=== PATIENT | male | born 1980 | race Hispanic/Latino ===

== ENCOUNTER 2025-01-02 15:57 | Emergency (ER) | payer BC, SELFPAY ==
[2025-01-02] VITALS (7 sets, daily range): BP systolic 148–181; BP diastolic 84–99; BMI 27.3
[2025-01-02] MEDS: NSS 1000 IV (16:47)
[2025-01-02] MEDS: ZOFRAN 4 MG IV (16:48)
[2025-01-02] MEDS: DILAUDID 0.5 MG IV (16:48)
[2025-01-02 17:01] LABS: Hematocrit 47.7 % (39.0-52.0); Hemoglobin 16.0 g/dL (13.0-18.0); Mean Corp Hgb Conc. 33.5 g/dL (33.0-37.0); Mean Corpuscular Volume 82.0 fL (80.0-94.0); Nucleated Red Blood Cells % 0 % (-); Platelet Count 232 10^3/uL (130-400); Red Cell Dist. Width 12.6 % (11.5-14.5)
[2025-01-02 17:25] LABS: ALT (SGPT) 21 U/L (0-50); AST (SGOT) 22 U/L (17-59); Albumin 5.1 g/dl (3.5-5.0); Alkaline Phosphatase 61 U/L (38-126); Blood Urea Nitrogen 16 mg/dl (9-20); Calcium 9.6 mg/dl (8.4-10.2); Carbon Dioxide 26 mmol/L (22-30); Chloride 102 mmol/L (98-107); Estimated Creatinine Clearance 107 ml/min; Glucose 131 mg/dl (70-99); Potassium 4.4 mmol/L (3.5-5.1); Sodium 138 mmol/L (135-145); Total Protein 8.2 g/dl (6.3-8.2); eGFR > 60.00
[2025-01-02 17:27] LABS: C-Reactive Protein < 5.00 mg/L (0.0-10.00)
[2025-01-02] MEDS: OFIRMEV 100 IV (17:38)
[2025-01-02 18:13] LABS: COVID-19 Antigen Negative (Negative)
[2025-01-02] MEDS: TORADOL 30 MG IV (19:53)
[2025-01-02] MEDS: DECADRON 10 MG IV (19:54)
[2025-01-02 20:29] LABS: Urine Character Cloudy (Clear)
[2025-01-02 20:35] LABS: Urine Red Blood Cell 0-2 /HPF (0-2); Urine Squamous Cell 0-2 /LPF (Few); Urine White Cell 0-2 /HPF (0-5)
--- NOTE | 2025-01-02 22:01 | ED.GENMED ---
History of Present Illness
General
Chief Complaint: Fever
Source: patient and spouse
Exam Limitations: none
Time Seen by Provider: 01/02/25 16:14
Nursing documentation reviewed up to this point in time: agreed with
History of Present Illness
History of Present Illness:
Patient to ED with complaitn of severe head and neck pain, fever, n/v. Symptoms started friday and continue to worsen. Temp max 102. Taking ibuprofen and tylenol with little improvement. Today he has been unable to keep anything down today.
Brought to ED by spouse for eval.
Past History
Past History
ED Past Medical History: HTN, Other (prediabetic, quadraparesis) and Other (COVID-19 08/2021)
Social History
Tobacco: Non-smoker
Employment: Employed
Family History
Family History: Other (reviewed and noncontributory)
Review of Systems
Review of Systems
Allergies reviewed?: Yes
All Other Systems: ROS reviewed and negative except as documented in HPI and ROS
Constitutional: Reports fever and fatigue
EENT: Reports no symptoms
Respiratory: Reports no symptoms
Cardiac: Reports no symptoms
ABD/GI: Reports nausea and vomiting
: Reports no symptoms
Musculoskeletal: Reports no symptoms
Skin: Reports no symptoms
Neurological: Reports headache
Psychiatric: Reports no symptoms
Phy Exam
General Physical Exam
General Presentation: moderate distress
General age: appears stated age
General Skin: warm and dry
General Habitus: normal
General Mental: alert
General Hydration: dry mucous membranes
ENT Exam
ENT Exam: EOMI, TM's normal, pharynx normal, neck supple, normocephalic and swallowing well
Eye Exam
Eye Exam: PERRL, EOMI, conjunctiva normal and globe normal
Cardiovascular Exam
Cardiovascular Exam: regular rate/rhythm and no edema
Pulmonary Exam
Pulmonary Exam: lungs clear and no respiratory distress
Gastrointestinal Exam
Gastrointestinal Exam: non tender and soft
Neurological Exam
Neurological Exam: alert, oriented x3, no motor deficits, no sensory deficits and speech normal
Musculoskeletal Exam
Musculoskeletal Exam: full ROM and neuro vasc intact
Skin Exam
Skin Exam: normal color, warm/dry and no rash
Psychiatric Exam
Psychiatric Exam: normal mood/affect
Course
Orders/Labs/Results
Orders:
Orders
01/02/25 16:27
HYDROmorphone [Dilaudid] 0.5 mg IV NOW STA
Ondansetron Injectable [Zofran] 4 mg IV NOW STA
01/02/25 16:28
0.9% Sodium Chloride 1000 ml [Nss] 1,000 ml IV BOLUS
01/02/25 16:35
CT Head W/o Iv Contrast Urgent
Comment:
Reason For Exam: severe head pain
01/02/25 16:43
CRP [C-Reactive Protein] Urgent
Complete Blood Count/With Diff Urgent
Comprehensive Metabolic Panel Urgent
Lactic Acid Urgent
Lyme Progressive Urgent
Sed Rate [Erythrocyte Sed Rate] Urgent
Blood Culture Q30M
PRAVIN Source: Blood/Venous
Specimen Description:
01/02/25 17:18
Blood Culture Q30M
PRAVIN Source: Blood/Venous
Specimen Description:
01/02/25 17:27
Acetaminophen 1000MG/100Ml [Ofirmev] 1,000 mg in 100 ml IV ONCE
Acetaminophen IV Indication:: No [place] & No Enteral Access
01/02/25 17:37
COVID-19 Antigen Urgent
Source: Nasal Swab
Influenza A+B Rapid Molecular Urgent
PRAVIN Source: Nasal Swab
Specimen Description:
01/02/25 19:33
Dexamethasone Sod Phosphate [Decadron] 10 mg IV NOW STA
Ketorolac [Toradol] 30 mg IV NOW STA
01/02/25 20:22
Urinalysis Reflex To Culture Urgent
Date Specimen was Collected: 01/02/25
Time Specimen was Collected: 20:21
Urine Microscopic Reflex Cult Urgent
Abnormal Lab Results
01/02/25 01/02/25
16:43 20:22
Absolute Neuts (auto) 6.9 H 10^3/uL
(1.4-6.5)
Absolute Lymphs (auto) 0.7 L 10^3/uL
(1.2-3.4)
Neutrophils % 88.4 H %
(42.2-75.2)
Lymphocytes % 8.3 L %
(20.5-51.1)
Glucose 131 H mg/dl
(70-99)
Albumin 5.1 H g/dl
(3.5-5.0)
Urine Ketones 3+ A
(Negative)
Urine Bacteria (Reflex) Few A
(Negative)
Urine Albumin (Reflex) 2+ A
(Neg - Trace)
01/02/25 16:43
01/02/25 16:43
Vital Signs
Initial and Last Documented VS:
Initial Vital Signs
Temp Pulse Resp BP Pulse Ox
98.6 F 84 17 157/99 96
01/02/25 15:59 01/02/25 15:59 01/02/25 15:59 01/02/25 15:59 01/02/25 15:59
Last Documented Vital Signs
Temp Pulse Resp BP Pulse Ox
97.8 F 76 17 150/86 98
01/02/25 20:36 01/02/25 20:30 01/02/25 20:30 01/02/25 20:00 01/02/25 20:30
*Radiology
Radiology exam reviewed: radiology read reviewed
*Pulse Oximetry
SaO2: 98
Oxygen Mode of Delivery: Room air
Patient hypoxic: no
*Critical Care Note
Total Time (30-74mins, 75-104mins- exclusive of procedures): Not Applicable
Update Note
Update Note:
Patient to ED with headache, fever, neck pain since Friday, not responding to tylenol or IBU. VSS, he is afebrile in ED. Labs reviewed. WBC normal, no concerning findings on cbc, chem, ua. CT head neg for acute findings. He was given IVF,
dilaudid, zofran, ofirmiv in ED without improvement in pain. Nausea and vomiting resolved wiht zofran. He was then given decadron and IV toradol with relief of pain. Discussed LP procedure wth him and spouse, they elect to hold off at this time as
he has improved greatly. Will continue zofran, toradol, prednisone at home, close follow upw tih PCP. Given instructions on s/s to return to ED and he is agreeable to plsn
ED Attending Note
-
Portions of this chart may have been created with voice recognition software.� Occasional wrong word or��sound alike� substitutions may have occurred due to the inherent limitations of voice recognition software.
Discharge Plan
Departure
Patient Disposition: Home (Routine Discharge)
Date of Disposition: 01/02/25
Time of Disposition: 20:29
Patient with high blood pressure during this ER visit?: No
Condition: Good
Covid-19: Not Applicable
Discharge Problem:
Viral illness, Headache, Neck pain
Instructions: Viral Syndrome (DC), Headaches in adults
Prescriptions:
New
ketorolac 10 mg tablet
10 mg PO Q8H PRN (Reason: head pain) 2 Days Qty: 7 0RF
prednisone 20 mg tablet
40 mg PO DAILY Qty: 8 0RF
ondansetron 4 mg tablet,disintegrating
4 mg PO Q8H PRN (Reason: nausea and vomiting) 4 Days Qty: 12 0RF
No Action
lisinopril 10 MG tablet
10 mg PO DAILY
Patient Comments:
08/31/21-patient has bottle from years ago at home and stop talking it then return taking it when he saw his new pcp and then found something on a test, patient girlfriend said patient in between finding a new pcp
metformin 500 MG tablet
500 mg PO BID@0800,1700 30 Days Qty: 60 0RF
dexamethasone 4 MG tablet
6 mg PO DAILY 10 Days Qty: 15 0RF
aspirin [Adult Low Dose Aspirin] 81 MG tablet,delayed release (DR/EC)
81 mg PO DAILY Qty: 30 0RF
Referrals:
Haley Foster CRNP [Family Provider] - Tomorrow
Stand Alone Forms: Return to Work
Interventions
Interventions:
*Risk Screen - Suicide Last Done: 01/02/25 16:01
*General Assessment Last Done: 01/02/25 16:01
*Neglect/Abuse Screening Last Done: 01/02/25 16:01
*ED- Fall Risk Assessment Last Done: 01/02/25 16:14
*ED COVID-19 Vaccine History Last Done: 01/02/25 16:01
*ED Influenza Vaccine History Last Done: 01/02/25 16:01
*Nursing Disposition Last Done: 01/02/25 20:46
ED- Neurological Assessment Last Done: 01/02/25 16:19
ED-Skin Assessment Last Done: 01/02/25 16:19
Discharge Date and Time
Discharge Date/Time: 01/02/25 20:50
Print Language: GREEK
[2025-01-03 16:09] LABS: Lyme Antibody Screen, EIA Negative (Negative)
== END 2025-01-02 20:50 | disposition home or self-care (01) ==
LOC: EMR 15:57
PROVIDERS: Nurse Practitioner; EMERGENCY PHYSICIAN Student in an Organized Health Care Education/Training Program; FAMILY PHYSICIAN Nurse Practitioner Primary Care
DX: B34.9 Viral infection, unspecified (principal); R51.9 Headache, unspecified; M54.2 Cervicalgia; R11.2 Nausea with vomiting, unspecified; I10 Essential (primary) hypertension; Z86.16 Personal history of COVID-19
CPT/HCPCS: 99284; 96374; 96375; 96361; 70450; 80053; 81003; 81015; 83605; 85025; 85652; 86140; 86618; 87040; 87502; 87811

== ENCOUNTER 2025-01-06 15:39 | Inpatient (IN) | payer BC, SELFPAY ==
[2025-01-06] VITALS (20 sets, daily range): BP systolic 124–158; BP diastolic 79–105; BMI 28.5
[2025-01-06] MEDS: NSS 1000 IV (11:22)
[2025-01-06] MEDS: DILAUDID 0.5 MG IV ×2 (11:23→12:06)
[2025-01-06 11:42] LABS: Hematocrit 46.3 % (39.0-52.0); Hemoglobin 15.7 g/dL (13.0-18.0); Mean Corp Hgb Conc. 33.9 g/dL (33.0-37.0); Mean Corpuscular Volume 81.1 fL (80.0-94.0); Platelet Count 225 10^3/uL (130-400); Red Cell Dist. Width 12.5 % (11.5-14.5)
--- NOTE | 2025-01-06 11:58 | ED.GENMED ---
History of Present Illness
General
Chief Complaint: Headache
Source: patient and significant other
Time Seen by Provider: 01/06/25 11:00
History of Present Illness
History of Present Illness:
44-year-old male presents to the emergency room complaining of persistent headache, neck stiffness, low-grade fever. Symptoms began about 10 days ago. He initially had a temperature up to 102. He was actually seen here in the emergency room on
January 02. At that time he had a negative flu and COVID test. He received IV medication for discomfort with improvement. In particular to my Toradol and Decadron worked. He had a CT of the head which showed nothing acute. Symptoms not really
improved since that time. He has not had as high fever. Patient does not take any prescription medications. He had a unusual episode in 2021 when he had headache, fever and became paralyzed. Ultimately was thought he had a cerebritis from rapid
COVID. Though symptoms ultimately resolved.
Past History
Past History
ED Past Medical History: HTN, Other (prediabetic, quadraparesis) and Other (COVID-19 08/2021)
Social History
Tobacco: Non-smoker
Employment: Employed
Family History
Family History: Other (reviewed and noncontributory)
Phy Exam
Physical Exam
Physical Exam:
General: Awake, Alert, Oriented X3. Patient appears uncomfortable from pain
Vitals: unremarkable
Head: Atraumatic
Eyes: Pupils equal, EOMI
Throat: Airway intact, no exudates
Neck: Trachea midline, positive nuchal rigidity
Lungs: Clear and equal b/l
Heart: Regular rate, no murmurs
Abd: Soft, Nontender, No pulsatile mass
Neuro: Cranial nerves intact, muscle strength equal bilaterally
Skin: Warm, dry, no rash
Extremities: pulses equal b/l, no edema
Course
Orders/Labs/Results
Orders:
Orders
01/06/25 11:13
Electrocardiogram (*1) Stat
Reason for Study: Other
Other Reason for Exam: Headache
Cardiac Monitoring- Treatment ONCE
EKG- Treatment ONCE
0.9% Sodium Chloride 1000 ml [Nss] 1,000 ml IV BOLUS
HYDROmorphone [Dilaudid] 0.5 mg IV NOW STA
01/06/25 11:27
Complete Blood Count/No Diff Urgent
Lyme Progressive Urgent
01/06/25 11:58
Comprehensive Metabolic Panel Urgent
Meningitis Panel, CSF by PCR Urgent
PRAVIN Source: Csf
Specimen Description:
Dexamethasone Sod Phosphate [Decadron] 6 mg IV NOW STA
HYDROmorphone [Dilaudid] 0.5 mg IV NOW STA
Ketorolac [Toradol] 15 mg IV NOW STA
01/06/25 11:59
CSF Cell Count Urgent
Date Specimen was Collected: 01/06/25
Time Specimen was Collected: 11:58
Spinal Fluid Glucose Urgent
Date Specimen was Collected: 01/06/25
Time Specimen was Collected: 11:58
Spinal Fluid Protein Urgent
Date Specimen was Collected: 01/06/25
Time Specimen was Collected: 11:58
CSF Culture with Gram Stain Urgent
PRAVIN Source: Csf
Specimen Description:
Date Specimen was Collected: 01/06/25
Time Specimen was Collected: 11:58
01/06/25 12:52
CefTRIAXone [Rocephin] 2,000 mg IV NOW STA
Vancomycin [Vancocin] 2,000 mg 0.9% Sodium Chloride 500 ml [Nss] 500 ml IV NOW
01/06/25 13:01
Acyclovir [Zovirax Injection] 1,000 mg 0.9% Sodium Chloride 250 ml [Nss] 250 ml IV NOW
01/06/25 13:36
Dexamethasone Sod Phosphate [Decadron] 8.8 mg IV NOW STA
01/06/25 13:40
CSF Cell Count Urgent
Date Specimen was Collected: 01/06/25
Time Specimen was Collected: 11:30
Gram Stain Urgent
PRAVIN Source: Csf
Specimen Description:
Date Specimen was Collected: 01/06/25
Time Specimen was Collected: 11:30
01/06/25 13:43
Consult Interventional Radiology [IRAD CONSULT] Urgent
Consulting Provider: Nilesh Samson
Was physician already notified: Yes
Procedure being ordered, including laterality if applicable: Lumbar Puncture
Acknowledgement that appropriate orders are entered: Yes
01/06/25 13:44
INFECTIOUS DISEASE CONSULT Routine
Consulting Provider: Hugo Villagomez
Was physician already notified: Yes
Reason for consult: Meningitis
01/06/25 13:55
Lyme PCR, DNA [S] Stat
Blood Culture Q30M
PRAVIN Source: Blood/Venous
Specimen Description:
Comment: STAT BLOOD CULTURES
01/06/25 13:58
Blood Culture Q30M
PRAVIN Source: Blood/Venous
Specimen Description:
Comment: STAT BLOOD CULTURES
Abnormal Lab Results
01/06/25 01/06/25
11:58 11:59
Glucose 106 H mg/dl
(70-99)
Calcium 8.3 L mg/dl
(8.4-10.2)
Total Bilirubin 1.6 H mg/dl
(0.2-1.3)
CSF WBC 356 H* mm^3
(0-5)
CSF Total Protein 171 H mg/dl
(12-60)
01/06/25 11:27
01/06/25 11:58
Vital Signs
Initial and Last Documented VS:
Initial Vital Signs
Temp Pulse Resp BP Pulse Ox
98.6 F 73 20 142/99 98
01/06/25 10:06 01/06/25 10:06 01/06/25 10:06 01/06/25 10:06 01/06/25 10:06
Last Documented Vital Signs
Temp Pulse Resp BP Pulse Ox
98.6 F 86 19 153/95 97
01/06/25 10:06 01/06/25 13:15 01/06/25 13:15 01/06/25 13:00 01/06/25 13:15
Procedures
Lumbar Puncture
Indication for procedure:: possible meningitis
Procedure completed by: myself
Consent form signed: No
Anesthesia/sedation: 1% Lidocaine
Preparation: cleaned with Betadine
Position: decubitis
Needle Size: 20 gauge
Needle Type: Lumbar Needle
Number of attempts: 2
Dressing applied to puncture site: bandaid
Complications: none
Additional information:
opening pressure of 30
MDM/Problems Addressed
Differential Diagnosis Includes:
Bacterial meningitis, viral meningitis, fungal meningitis, generalized viral syndrome
MDM/Problems Addressed:
Patient presents emergency room with severe headache and neck pain. He was seen several days ago for similar symptoms. Patient elected to defer lumbar puncture at that time. However now that the pain has not improved he is amendable to the
procedure. Lumbar puncture performed and clear spinal fluid obtained. Opening pressure was 30. Spinal fluid analysis ultimately demonstrated high number of white blood cells mostly lymphocytes. BioFire assay positive for varicella. Patient was
treated with 2 g of Rocephin, 2 g of vancomycin and 1 g of acyclovir. Patient will require hospitalization for IV antiviral's and antibiotics. Infectious disease consult placed.
*Pulse Oximetry
SaO2: 97
Oxygen Mode of Delivery: Room air
Patient hypoxic: no
*Critical Care Note
Total Time (30-74mins, 75-104mins- exclusive of procedures): 36 min
comment:
Critical care statement: A total of 36 minutes of critical care time was provided for this patient. This includes management of unstable vital signs, evaluation of the patient at bedside, reviewing the patient's pertinent medical records, discussion
with consultants, review of old EKGs and review of pertinent medical records. This time with separate from time utilized to perform the aforementioned documented procedures
ED Attending Note
-
Portions of this chart may have been created with voice recognition software.� Occasional wrong word or��sound alike� substitutions may have occurred due to the inherent limitations of voice recognition software.
Discharge Plan
Departure
Patient Disposition: Admit
Date of Disposition: 01/06/25
Time of Disposition: 13:09
Admit to: Med/Surg
Presentation/result/management discussed w/ accepting MD/DO: Hospitalist
Condition: Fair
Discharge Problem:
Meningitis
Prescriptions:
No Action
losartan 50 mg Tablet
50 mg PO DAILY
Referrals:
Haley Foster CRNP [Family Provider]
Interventions
Interventions:
*Risk Screen - Suicide Last Done: 01/06/25 10:06
*General Assessment Last Done: 01/06/25 11:52
*Neglect/Abuse Screening Last Done: 01/06/25 11:52
*ED- Fall Risk Assessment Last Done: 01/06/25 11:52
*ED COVID-19 Vaccine History Last Done: 01/06/25 11:52
*ED Influenza Vaccine History Last Done: 01/06/25 11:52
ED- Neurological Assessment Last Done: 01/06/25 11:52
Discharge Date and Time
Print Language: AZERI
[2025-01-06] MEDS: DECADRON 6 MG IV (12:06)
[2025-01-06] MEDS: TORADOL 15 MG IV (12:07)
[2025-01-06 12:31] LABS: ALT (SGPT) 22 U/L (0-50); AST (SGOT) 18 U/L (17-59); Albumin 4.1 g/dl (3.5-5.0); Alkaline Phosphatase 54 U/L (38-126); Blood Urea Nitrogen 13 mg/dl (9-20); Calcium 8.3 mg/dl (8.4-10.2); Carbon Dioxide 30 mmol/L (22-30); Chloride 103 mmol/L (98-107); Estimated Creatinine Clearance 118 ml/min; Glucose 106 mg/dl (70-99); Potassium 3.6 mmol/L (3.5-5.1); Sodium 137 mmol/L (135-145); Total Protein 6.7 g/dl (6.3-8.2); eGFR > 60.00
[2025-01-06 12:44] LABS: CSF Color Colorless
[2025-01-06 12:45] LABS: Red Cell Count/CSF 18 mm^3
[2025-01-06 12:47] LABS: White Cell Count/CSF 356 mm^3 (0-5)
[2025-01-06 12:54] LABS: Spinal Fluid Granulocytes 2 %; Spinal Fluid Lymphocytes 92 %; Spinal Fluid Macrophages 6 %
[2025-01-06] MEDS: VANCOCIN 540 MG IV (13:07)
[2025-01-06] MEDS: ROCEPHIN 2000 MG IV (13:07)
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
[2025-01-06] MEDS: ZOVIRAX INJECTION 270 MG IV (16:00)
[2025-01-06] MEDS: ZOFRAN 4 MG IV (22:00)
[2025-01-06] MEDS: LOVENOX 40 MG SC (22:01)
[2025-01-07] VITALS (17 sets, daily range): BP systolic 118–169; BP diastolic 62–102; BMI 27.2
[2025-01-07] MEDS: ZOVIRAX INJECTION 270 MG IV ×4 (01:00→23:25)
--- NOTE | 2025-01-07 06:20 | PTCARENOTE ---
Pt arrived to room 431 from ED, ambulating independently. AAOx3, no complaints of pain, VSS. Pt oriented to room with call saavedra in reach, bed in lowest position.
--- NOTE | 2025-01-07 08:17 | W.PN.HOSP.TC ---
Today's Communication/Plan
-
See plan
Assessment / Plan
Assessment / Plan
Physical Exam
General: No Apparent Distress
HEENT: NormoCephalic and Other (Photophobia present)
Respiratory: Clear
Cardiac: S1/S2 and Regular Rhythm
GI: Soft, Non Tender and Normal Bowel Sounds
Musculoskeletal: No Cyanosis and No Edema
Skin: Warm and Dry
Neuro: Awake, Alert, AO x 3, Cranial Nerves Intact and Other (Nuchal Rigidity -- IMPROVED)
Psych: Calm and Intact Judgment/Insight
Assessment/Plan
44-year-old male with past medical history of hypertension, pre-DM (supposed to be on Metformin, as per patient's ) and hospitalization in August 2021 with sudden onset of generalized weakness that was global and presented with a locked-in state
at that time was thought to be from COVID (received steroids with resolution of symptoms), presented to the emergency room complaining of persistent headache, neck stiffness, low-grade fever. Patient's symptoms began about 10 days ago, and initially
he had a temperature up to 102 F. He came to the emergency room here on January 02, 2025. He had a CT of the head which showed nothing acute. Per ER physician at that time he declined lumbar puncture was discharged home from the ER. His symptoms had
not really improved since that time. Patient also has had eyes sensitive to light, as well as vomiting, in addition to his severe headache and neck pain.
#VZV meningitis
#Right posterior C6 herpes zoster
-LP today revealed VZV but ruled out bacterial cause of meningitis; CSF cell counts support viral meningitis
-Received antibiotics and steroids in the ER, no longer needed
-Acyclovir 1000mg IV q8h first day was 01/06/25 -- continue through 01/20/25 as per ID
-Monitor renal function closely as Acyclovir has potential to cause nephrotoxicity
-Per ID physician Dr. Redding: Contact isolation. Keep lesions covered. No need for airborne isolation.
#PreDM
-Was taking/supposed to be taking Metformin outpatient
#History of Severe Generalized Weakness in setting of COVID in 2021
DVT Prophylaxis: Lovenox
Code Status: Full Code
Anticipated Discharge: > 48 hours
Subjective/Interval History
-
Date of Service: January 07, 2025
Patient was seen and examined. He had headache that improved significantly after Toradol was given. He was overall feeling better today.
Objective Data
-
Labs:
Laboratory Results
01/07/25
08:05
WBC Pending
Hgb Pending
Hct Pending
Plt Count Pending
Sodium Pending
Potassium Pending
Chloride Pending
Carbon Dioxide Pending
BUN Pending
Creatinine Pending
Glucose Pending
Calcium Pending
Total Bilirubin Pending
AST Pending
ALT Pending
Alkaline Phosphatase Pending
Vital Signs:
Vital Signs
Temp Pulse Resp BP Pulse Ox
97.9 F 71 18 169/102 97
01/07/25 06:44 01/07/25 06:44 01/07/25 06:44 01/07/25 06:44 01/07/25 06:44
[2025-01-07 08:56] LABS: Hematocrit 45.6 % (39.0-52.0); Hemoglobin 14.8 g/dL (13.0-18.0); Mean Corp Hgb Conc. 32.5 g/dL (33.0-37.0); Mean Corpuscular Volume 84.4 fL (80.0-94.0); Platelet Count 230 10^3/uL (130-400); Red Cell Dist. Width 12.3 % (11.5-14.5)
[2025-01-07 09:33] LABS: ALT (SGPT) 24 U/L (0-50); AST (SGOT) 20 U/L (17-59); Albumin 4.3 g/dl (3.5-5.0); Alkaline Phosphatase 49 U/L (38-126); Blood Urea Nitrogen 20 mg/dl (9-20); Calcium 8.8 mg/dl (8.4-10.2); Carbon Dioxide 29 mmol/L (22-30); Chloride 101 mmol/L (98-107); Estimated Creatinine Clearance 107 ml/min; Glucose 115 mg/dl (70-99); Magnesium 2.1 mg/dl (1.6-2.3); Sodium 136 mmol/L (135-145); Total Protein 6.8 g/dl (6.3-8.2); eGFR > 60.00
[2025-01-07 09:37] LABS: Potassium 3.8 mmol/L (3.5-5.1)
[2025-01-07] MEDS: COZAAR 50 MG PO (10:37)
[2025-01-07] MEDS: TORADOL 15 MG IV (10:38)
--- NOTE | 2025-01-07 10:43 | W.PN.ID1 ---
Date of Service
Date of Service: January 07, 2025
Today's Communication
Continue IV acyclovir
Assessment / Plan
# VZV meningitis
# Right posterior C6 herpes zoster
- CSF 356 WBC, 92%L, 171 protein
Meningitis PCR panel: positive VZV
- Continue Acyclovir 1000mg IV q8h x 14 days through 01/20/25
- Monitor renal function closely while on IV acyclovir.
- Follow clinically.
Chief Complaint
-: Other (Aseptic meningitis)
Subjective / Review of Systems
DUQUE/neck stiffness stable, no worse
Vital Signs / Physical Exam
Vital Signs
Vital Signs
Temp Pulse Resp BP Pulse Ox
98.1 F 62 16 155/91 99
01/07/25 07:10 01/07/25 07:10 01/07/25 07:10 01/07/25 07:10 01/07/25 07:10
Physical Exam
Constitutional: Non-toxic
Eyes: No Conjunctival Hemorrhage and Sclera Anicteric
Cardiovascular: Regular Rate and S1/S2
Pulmonary: Clear
Gastrointestinal: Soft, Non Tender, Non Distended and Normal Bowel Sounds
Extremities: Negative Edema
Skin: Rash (Posterior base of right neck clusters of lesions smaller )
Neurological: AO x 3, Meningeal Signs and Other (no photophobia)
Objective Data
Lab Data
Lab Results
01/07/25 08:05
01/07/25 08:05
Estimated Creat Clear 107 ml/min 01/07/25 08:05
Total Bilirubin 1.3 mg/dl (0.2-1.3) 01/07/25 08:05
AST 20 U/L (17-59) 01/07/25 08:05
ALT 24 U/L (0-50) 01/07/25 08:05
Alkaline Phosphatase 49 U/L (38-126) 01/07/25 08:05
Most recent labs reviewed.
Micro Results:
01/06/25 11:59 CSF Culture - Preliminary
Csf No Growth After 18-24 Hours
Gram Stain - Preliminary
01/06/25 13:55 Blood Culture - Pending
Blood/Venous
01/06/25 13:58 Blood Culture - Pending
Blood/Venous
01/06/25 11:58 Meningitis/Encephalitis Panel (PCR) - Final
Csf
01/02/[address] evidence for intracranial disease.
--- NOTE | 2025-01-07 11:51 | CM ---
sales administration manager reviewed patient's chart and met with patient and patient lives with spouse in a multilevel home patient is independent with adl's and ambulation, patient has no dme, per patient's spouse works as a nurse at [employer], and will be able to assist at discharge, case fitter strategic marketing manager received a script from ID physician and copy placed on chart, plan is to home with home infusion, infusion options discussed with patient and patient has selected [facility]
Infusion, , . Referral faxed to [place] at [facility] infusion.
PCP: Haley chapman
Pharmacy: [facility]
Plan; Home with spouse and Home infusion from [facility] infusion, referral sent. Script on Chart.
[2025-01-07] MEDS: LOVENOX 40 MG SC (17:04)
[2025-01-08 07:38] VITALS: BP 152/96
[2025-01-08] MEDS: COZAAR 50 MG PO (08:54)
[2025-01-08] MEDS: ZOVIRAX INJECTION 270 MG IV ×3 (08:54→21:19)
--- NOTE | 2025-01-08 11:00 | W.PN.ID1 ---
Date of Service
Date of Service: January 08, 2025
Today's Communication
Continue IV acyclovir. See below.
Assessment / Plan
# VZV meningitis
# Right posterior C6 herpes zoster
- CSF 356 WBC, 92%L, 171 protein
Meningitis PCR panel: positive VZV
- Clinically improving
- Continue Acyclovir 1000mg IV q8h x 14 days through 01/20/25
- Monitor renal function closely while on IV acyclovir.
Follow BMP, CBC qMon, Thurs.
- Home infusion sheet submitted to correctional counselor/case manager on 01/07/25.
Chief Complaint
-: Other (Aseptic meningitis)
Subjective / Review of Systems
DUQUE and neck stiffness much improved.
Vital Signs / Physical Exam
Vital Signs
Vital Signs
Temp Pulse Resp BP Pulse Ox
98.1 F 65 18 152/96 97
01/08/25 07:38 01/08/25 07:38 01/08/25 07:38 01/08/25 07:38 01/08/25 07:38
Physical Exam
Constitutional: No Acute Distress, Comfortable and Non-toxic
Eyes: No Conjunctival Hemorrhage and Sclera Anicteric
Cardiovascular: Regular Rate and S1/S2
Pulmonary: Clear
Gastrointestinal: Soft, Non Tender, Non Distended and Normal Bowel Sounds
Extremities: Negative Edema
Skin: Rash (Posterior base of right neck clusters of lesions smaller )
Neurological: AO x 3 and Other (no photophobia); Negative Meningeal Signs
Objective Data
Lab Data
Estimated Creat Clear 107 ml/min 01/07/25 08:05
Total Bilirubin 1.3 mg/dl (0.2-1.3) 01/07/25 08:05
AST 20 U/L (17-59) 01/07/25 08:05
ALT 24 U/L (0-50) 01/07/25 08:05
Alkaline Phosphatase 49 U/L (38-126) 01/07/25 08:05
Most recent labs reviewed.
Micro Results:
01/06/25 11:59 CSF Culture - Preliminary
Csf No Growth After 48 Hours
Gram Stain - Preliminary
01/06/25 13:58 Blood Culture - Preliminary
Blood/Venous No Growth in 24 hours- Final report to follow
01/06/25 13:55 Blood Culture - Preliminary
Blood/Venous No Growth in 24 hours- Final report to follow
01/06/25 11:58 Meningitis/Encephalitis Panel (PCR) - Final
Csf
Procedure Result Verified
Meningitis Panel, CSF by PCR Final 01/06/25-1346
Escherichia coli K1 Not Detected
Haemophilus influenzae Not Detected
Listeria monocytogenes Not Detected
Neisseria meningitidis Not Detected
Cytomegalovirus (CMV) Not Detected
Streptococcus agalactiae Not Detected
Streptococcus pneumoniae Not Detected
Enterovirus Not Detected
Herpes simplex virus 1 Not Detected
Herpes simplex virus 2 Not Detected
Human herpesvirus 6 Not Detected
Human parechovirus Not Detected
Varicella zoster virus DETECTED
C. neoformans/gattii Not Detected
01/02/[address] evidence for intracranial disease.
Care Review
Plan reviewed with: Physician (Dr. Garcia)
[2025-01-08 11:44] LABS: Hematocrit 44.5 % (39.0-52.0); Hemoglobin 14.5 g/dL (13.0-18.0); Mean Corp Hgb Conc. 32.6 g/dL (33.0-37.0); Mean Corpuscular Volume 83.8 fL (80.0-94.0); Platelet Count 231 10^3/uL (130-400); Red Cell Dist. Width 12.7 % (11.5-14.5)
[2025-01-08 12:18] LABS: ALT (SGPT) 19 U/L (0-50); AST (SGOT) 16 U/L (17-59); Albumin 4.0 g/dl (3.5-5.0); Alkaline Phosphatase 46 U/L (38-126); Blood Urea Nitrogen 14 mg/dl (9-20); Calcium 8.7 mg/dl (8.4-10.2); Carbon Dioxide 33 mmol/L (22-30); Chloride 100 mmol/L (98-107); Estimated Creatinine Clearance 107 ml/min; Glucose 73 mg/dl (70-99); Potassium 4.1 mmol/L (3.5-5.1); Sodium 149 mmol/L (135-145); Total Protein 6.6 g/dl (6.3-8.2); eGFR > 60.00
--- NOTE | 2025-01-08 15:16 | PTCARENOTE ---
pt called RN in to room due to complaint of headache that feels like sinus infection and asked to have blood pressure checked. bp was 189/[address] Oakes made aware and placed an order for Hydralazine. he also changed his diet to 2gm sodium.
pt and aware
[2025-01-08] MEDS: APRESOLINE 5 MG IV (15:33)
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
[2025-01-08 16:24] VITALS: BP 145/89
--- NOTE | 2025-01-08 17:10 | W.PN.HOSP.TC ---
Today's Communication/Plan
-
Continue Acyclovir
Neuroimaging ordered given patient's visual symptoms
Please use the PRN antihypertensives as ordered -- can use Q2H alternating hydralazine and labetalol -- please see orders
CCB added for better hypertension control
Monitor on telemetry
Assessment / Plan
Assessment / Plan
Physical Exam
General: No Apparent Distress
HEENT: NormoCephalic and Other (Photophobia present)
Respiratory: Clear
Cardiac: S1/S2 and Regular Rhythm
GI: Soft, Non Tender and Normal Bowel Sounds
Musculoskeletal: No Cyanosis and No Edema
Skin: Warm and Dry
Neuro: Awake, Alert, AO x 3, Cranial Nerves Intact and Other (Nuchal Rigidity -- IMPROVED)
Psych: Calm and Intact Judgment/Insight
Assessment/Plan
44-year-old male with past medical history of hypertension, pre-DM (supposed to be on Metformin, as per patient's ) and hospitalization in August 2021 with sudden onset of generalized weakness that was global and presented with a locked-in state
at that time was thought to be from COVID (received steroids with resolution of symptoms), presented to the emergency room complaining of persistent headache, neck stiffness, low-grade fever. Patient's symptoms began about 10 days ago, and initially
he had a temperature up to 102 F. He came to the emergency room here on January 02, 2025. He had a CT of the head which showed nothing acute. Per ER physician at that time he declined lumbar puncture was discharged home from the ER. His symptoms had
not really improved since that time. Patient also has had eyes sensitive to light, as well as vomiting, in addition to his severe headache and neck pain.
#VZV meningitis
#Right posterior C6 herpes zoster
-LP today revealed VZV but ruled out bacterial cause of meningitis; CSF cell counts support viral meningitis
-Received antibiotics and steroids in the ER, no longer needed
-Acyclovir 1000mg IV q8h first day was 01/06/25 -- continue through 01/20/25 as per ID
-Monitor renal function closely as Acyclovir has potential to cause nephrotoxicity
-Per ID physician Dr. Redding: Contact isolation. Keep lesions covered. No need for airborne isolation.
#Hypertensive Urgency
-Spoke with nephrology given patient's hypernatremia and significant hypertension, continue both prn antihypertensives, can alternate the Hydralazine and Labetalol IV Q2H (please see orders)
-Continue home Losartan
#Visual Disturbances
-On 01/08/25, patient reported occasional visual issues; he had some trouble reading the menu and some spotting like you get if you look at the sun; his expressed concern that his right eye looks bloodshot
-Above symptoms possibly from significant hypertension -- see above
-From VZV? Discussing with Infectious Disease physician
-Check stat CT Head, CTA Head and Neck and MRI Brain
-Consulted neurology
#PreDM
-Was taking/supposed to be taking Metformin outpatient
#History of Severe Generalized Weakness in setting of COVID in 2021
DVT Prophylaxis: Lovenox
Code Status: Full Code
Anticipated Discharge: > 48 hours
Subjective/Interval History
-
Date of Service: January 08, 2025
Patient was seen and examined. He reported that his symptoms are overall improved today. Later in the day he had high blood pressure and blurred vision with high blood pressure.
Objective Data
-
Labs:
Laboratory Results
01/08/25 01/08/25
10:36 16:48
WBC 6.5
Hgb 14.5
Hct 44.5
Plt Count 231
Sodium 149 H D Pending
Potassium 4.1 Pending
Chloride 100 Pending
Carbon Dioxide 33 H Pending
BUN 14 Pending
Creatinine 1.0 Pending
Glucose 73 Pending
Calcium 8.7 Pending
Total Bilirubin 0.9
AST 16 L
ALT 19
Alkaline Phosphatase 46
Vital Signs:
Vital Signs
Temp Pulse Resp BP Pulse Ox
98.6 F 85 18 145/89 98
01/08/25 16:24 01/08/25 16:24 01/08/25 16:24 01/08/25 16:24 01/08/25 16:24
I&O
01/07/25 01/08/25 01/09/25
06:59 06:59 06:59
Intake Total 840 / 840
Balance 840 / 840
[2025-01-08] MEDS: NORVASC 5 MG PO (17:12)
[2025-01-08] MEDS: LOVENOX 40 MG SC (17:14)
--- NOTE | 2025-01-08 17:17 | PTCARENOTE ---
Addendum entered by Eden Estrada RN 01/08/25 18:08:
pt placed on telemetry per order
Original Note:
pt with complaint of vision change. says it feels like when you look at the sun. had trouble earlier reading the menu. pt's also feels his right eye looks more bloodshot. Dr Garcia aware. stat CTA ordered of head and neck ordered. MRI
ordered as well. Pt with no neuro checks remain unchanged. pt and updated on all new orders.
[2025-01-08 17:32] LABS: Blood Urea Nitrogen 15 mg/dl (9-20); Calcium 9.0 mg/dl (8.4-10.2); Carbon Dioxide 31 mmol/L (22-30); Chloride 100 mmol/L (98-107); Estimated Creatinine Clearance 107 ml/min; Glucose 98 mg/dl (70-99); Potassium 3.9 mmol/L (3.5-5.1); Sodium 136 mmol/L (135-145); eGFR > 60.00
[2025-01-08 19:00] VITALS: BP 160/95
[2025-01-08] MEDS: TYLENOL 650 MG PO (19:28)
[2025-01-08 21:00] VITALS: BP 141/78
[2025-01-08 23:00] VITALS: BP 141/87
[2025-01-09] VITALS (9 sets, daily range): BP systolic 132–162; BP diastolic 52–98
--- NOTE | 2025-01-09 05:02 | PTCARENOTE ---
1899 pt's Temp 100.6, PRN 650mg Tylenol given. 2021 informed this RN through TT to alternate Hydralazine and Labetalol for BP control, vital signs to be checked q2H. 0320 Pt c/o mild sensitivity mainly on his left eye, pt with no
complaints of Nausea, vomiting, no neck stiffness. Provided PHYSICIAN RELATIONS MANAGER made aware, no new orders were made. Pt provided with eye mask to help alleviate any other symptoms. Pt expresses no other needs at this time. Call saavedra within reach.
[2025-01-09] MEDS: ZOVIRAX INJECTION 270 MG IV ×3 (05:37→21:13)
--- NOTE | 2025-01-09 07:14 | W.PN.HOSP.TC ---
Today's Communication/Plan
-
Headaches, blurred vision, eyes photosensitivity and eyes pains continue
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
Continue high dose Acyclovir
Steroid eye drops and Artificial tears as per my discussion with Dr. Nilesh Izaguirre who saw patient today, appreciate Dr. Izaguirre's assistance
Assessment / Plan
Assessment / Plan
Physical Exam
General: No Apparent Distress
HEENT: NormoCephalic and Other (Photophobia present)
Respiratory: Clear
Cardiac: S1/S2 and Regular Rhythm
GI: Soft, Non Tender and Normal Bowel Sounds
Musculoskeletal: No Cyanosis and No Edema
Skin: Warm and Dry
Neuro: Awake, Alert, AO x 3. Nuchal Rigidity IMPROVED. Cranial Nerves Intact except still with significant photophobia and decreased vision/visual acuity decreased. Otherwise remainder of neurological exam appears grossly intact.
Psych: Calm and Intact Judgment/Insight
Assessment/Plan
44-year-old male with past medical history of hypertension, pre-DM (supposed to be on Metformin, as per patient's ) and hospitalization in August 2021 with sudden onset of generalized weakness that was global and presented with a locked-in state
at that time was thought to be from COVID (received steroids with resolution of symptoms), presented to the emergency room complaining of persistent headache, neck stiffness, low-grade fever. Patient's symptoms began about 10 days ago, and initially
he had a temperature up to 102 F. He came to the emergency room here on January 02, 2025. He had a CT of the head which showed nothing acute. Per ER physician at that time he declined lumbar puncture was discharged home from the ER. His symptoms had
not really improved since that time. Patient also has had eyes sensitive to light, as well as vomiting, in addition to his severe headache and neck pain.
#VZV meningitis
#Right posterior C6 herpes zoster
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
-LP revealed VZV but ruled out bacterial cause of meningitis; CSF cell counts support viral meningitis
-Received antibiotics and steroids in the ER, no longer needed
-Acyclovir 1000mg IV q8h first day was 01/06/25 -- continue for 14 to 21 days
-Monitor renal function closely as Acyclovir has potential to cause nephrotoxicity
-Follow appropriate precautions, per ID just needs contact precautions and lesions covered
-No indication for systemic steroids right now, discussed with ID, try steroid eye drops (see below)
#Hypertensive Urgency
-Spoke with nephrology given patient's hypernatremia and significant hypertension, continue both prn antihypertensives, can alternate the Hydralazine and Labetalol IV Q2H (please see orders)
-Continue home Losartan
-Amlodipine and prn BP meds added
#Visual Disturbances
#Secondary Headache, secondary to VZV Meningitis
-On 01/08/25, patient reported occasional visual issues; he had some trouble reading the menu and some spotting like you get if you look at the sun; his expressed concern that his right eye looks bloodshot
-Above symptoms possibly from significant hypertension -- see above versus from VZV ADMINISTRATION VICE PRESIDENT process or both
-Neuroimaging done 01/08/25 to 01/09/25 unremarkable
-Ophthalomologist Dr. Nilesh Izaguirre saw patient on 01/09/25 and advised that patient has dry eyes which could cause a lot of symptoms, eye pressure normal, could have mild iritis, and that patient should be seen in outpatient office by Dr. Izaguirre
or Dr. Maldonado closely after discharge (within 1 week after discharge)
-Per my [place] Text communication with Dr. Izaguirre, his recommendation is for lubricating drops and prednisolone drops 3x/day -- ordered
-Greatly appreciate Dr. Izaguirre's assistance
-Consulted neurology -- they recommended Topamax 25 mg twice daily with titration as tolerated
#Hypernatremia
-In setting of very high blood pressure and unusual hypernatremia in a young patient with good PO intake, consulted nephrology
-Repeat labs showed normalization of sodium, probably lab error
#PreDM
-Was taking/supposed to be taking Metformin outpatient
#History of Severe Generalized Weakness in setting of COVID in 2021
DVT Prophylaxis: Lovenox
Code Status: Full Code
I updated patient's [place] today.
Blurry vision and VZV central nervous infection is a high risk encounter. I also spent 60 minutes on patient's care today, including extensive communication with on-call crop or livestock tenant farmer.
Anticipated Discharge: 24 - 48 hours
Subjective/Interval History
-
Date of Service: January 09, 2025
Patient was seen and examined. He reported headache, some blurry vision, and photophobia with his eyes today.
Objective Data
-
Labs:
Laboratory Results
01/09/25
06:00
WBC Pending
Hgb Pending
Hct Pending
Plt Count Pending
Sodium Pending
Potassium Pending
Chloride Pending
Carbon Dioxide Pending
BUN Pending
Creatinine Pending
Glucose Pending
Calcium Pending
Total Bilirubin Pending
AST Pending
ALT Pending
Alkaline Phosphatase Pending
Vital Signs:
Vital Signs
Temp Pulse Resp BP Pulse Ox
98.1 F 75 14 144/92 98
01/09/25 05:00 01/09/25 05:00 01/09/25 05:00 01/09/25 05:00 01/09/25 05:00
I&O
01/08/25 01/09/25 01/10/25
06:59 06:59 06:59
Intake Total 840 / 840 1110 / 1110
Balance 840 / 840 1110 / 1110
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
[2025-01-09 08:03] LABS: Hematocrit 48.5 % (39.0-52.0); Hemoglobin 15.8 g/dL (13.0-18.0); Mean Corp Hgb Conc. 32.6 g/dL (33.0-37.0); Mean Corpuscular Volume 86.0 fL (80.0-94.0); Platelet Count 243 10^3/uL (130-400); Red Cell Dist. Width 12.8 % (11.5-14.5)
[2025-01-09 08:30] LABS: ALT (SGPT) 21 U/L (0-50); AST (SGOT) 17 U/L (17-59); Albumin 4.4 g/dl (3.5-5.0); Alkaline Phosphatase 57 U/L (38-126); Blood Urea Nitrogen 12 mg/dl (9-20); Calcium 9.3 mg/dl (8.4-10.2); Carbon Dioxide 32 mmol/L (22-30); Chloride 100 mmol/L (98-107); Estimated Creatinine Clearance 107 ml/min; Glucose 122 mg/dl (70-99); Potassium 4.0 mmol/L (3.5-5.1); Sodium 138 mmol/L (135-145); Total Protein 7.2 g/dl (6.3-8.2); eGFR > 60.00
[2025-01-09] MEDS: COZAAR 50 MG PO (08:55)
[2025-01-09] MEDS: NORVASC 5 MG PO (08:55)
--- NOTE | 2025-01-09 10:04 | W.PN.ID1 ---
Date of Service
Date of Service: January 09, 2025
Today's Communication
See below.
Assessment / Plan
# VZV meningitis
# Right posterior C6 herpes zoster
# Acute R>L visual change
- CSF 356 WBC, 92%L, 171 protein
Meningitis PCR panel: positive VZV
- Pt initially improving then developed R>L visual change, head pressure.
- No V1 lesions to explain direct ocular VZV.
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
-Agree with MRI brain
-Appreciate ophtho who will examine the patient.
- OK for short course steroid, if indicated.
- Continue Acyclovir 1000mg IV q8h x 14 -21 days
- Monitor renal function closely while on IV acyclovir.
Chief Complaint
-: Other (Aseptic meningitis)
Subjective / Review of Systems
Events noted. Yesterday was doing very well until after midline placement in the afternoon, when he felt nauseated, lightheaded. BP noted to be in 180's. He received hydralazine. Later developed R>L visual changes. Today he complains of
pressure behind both eyes and the top of his head. Still with central vision changes. He felt like his eyes are sunken. The previous nuchal rigidity has resolved. Today c/o increased urinary frequency without dysuria.
Vital Signs / Physical Exam
Vital Signs
Vital Signs
Temp Pulse Resp BP Pulse Ox
98.1 F 70 14 137/91 98
01/09/25 07:00 01/09/25 08:55 01/09/25 07:00 01/09/25 08:55 01/09/25 07:00
Physical Exam
Constitutional: Acutely Ill
Head: Other (No frontal or maxillary sinus tenderness.)
Eyes: Other (OD vision- decreased centrally; OS vision; milder central vision blurriness; no eye pain with movement); Negative No Conjunctival Hemorrhage, Sclera Anicteric, Erythema or Ocular Discharge
Cardiovascular: Regular Rate and S1/S2
Pulmonary: Clear
Gastrointestinal: Soft, Non Tender, Non Distended and Normal Bowel Sounds
Genito-Urinary: Negative CVA Tenderness
Extremities: Negative Edema
Neurological: AO x 3; Negative Meningeal Signs
Objective Data
Lab Data
Lab Results
01/09/25 07:46
01/09/25 07:46
Estimated Creat Clear 107 ml/min 01/09/25 07:46
Total Bilirubin 1.4 mg/dl (0.2-1.3) H 01/09/25 07:46
AST 17 U/L (17-59) 01/09/25 07:46
ALT 21 U/L (0-50) 01/09/25 07:46
Alkaline Phosphatase 57 U/L (38-126) 01/09/25 07:46
Most recent labs reviewed.
Micro Results:
01/06/25 11:59 CSF Culture - Preliminary
Csf No Growth After 72 Hours
Gram Stain - Preliminary
01/06/25 13:55 Blood Culture - Preliminary
Blood/Venous No Growth in 48 hours- Final report to follow
01/06/25 13:58 Blood Culture - Preliminary
Blood/Venous No Growth in 48 hours- Final report to follow
01/06/25 11:58 Meningitis/Encephalitis Panel (PCR) - Final
Csf
Procedure Result Verified
Meningitis Panel, CSF by PCR Final 01/06/25-1346
Escherichia coli K1 Not Detected
Haemophilus influenzae Not Detected
Listeria monocytogenes Not Detected
Neisseria meningitidis Not Detected
Cytomegalovirus (CMV) Not Detected
Streptococcus agalactiae Not Detected
Streptococcus pneumoniae Not Detected
Enterovirus Not Detected
Herpes simplex virus 1 Not Detected
Herpes simplex virus 2 Not Detected
Human herpesvirus 6 Not Detected
Human parechovirus Not Detected
Varicella zoster virus DETECTED
C. neoformans/gattii Not Detected
01/02/[address] evidence for intracranial disease.
01/08/25 CTA head/neck: No significant vascular occlusion, aneurysm or dissection.
Care Review
Plan reviewed with: Physician (Dr. Garcia)
--- NOTE | 2025-01-09 10:23 | PTCARENOTE ---
Dr Garcia in early this morning to see pt. ordered opthamology consult and u/a with culture. RN spoke to him about vital sign order of every 2 hours and he verbalized that he would change to every 4 hours again. MRI called for pt and he will go
once neurology is finished seeing him. pt continues with complaint of light sensitivity and lights remain off in his room.
[2025-01-09 13:01] LABS: Urine Character Clear (Clear)
[2025-01-09 13:04] LABS: Magnesium 2.1 mg/dl (1.6-2.3)
[2025-01-09 13:09] LABS: Urine Red Blood Cell 0-2 /HPF (0-2); Urine White Cell 0-2 /HPF (0-5)
--- NOTE | 2025-01-09 14:00 | W.PN.NEPH.PH ---
Today's Communication / Plan
-
follow BP
Assessment/Plan
-
Assessment
Herpes encephalitis
Hypertension
Prediabetes
Hyponatremia
Urinary urgency
Plan
IV acyclovir
follow BMP
may titrate CCB as needed
prn hydralazine and labetalol
-
-
Date of Service: January 09, 2025
CC / HPI / ROS
-
Chief Complaint:
HTN
History of Present Illness:
BP better but still high
Na normal
on acyclovir for VZV in spinal tap
Review of Systems:
no CP/SOB
some photophobia still
Labs
-
Labs:
WBC 7.2 10^3/uL (4.8-10.8) 01/09/25 07:46
RBC 5.64 10^6/uL (4.70-6.10) 01/09/25 07:46
Hgb 15.8 g/dL (13.0-18.0) 01/09/25 07:46
Hct 48.5 % (39.0-52.0) 01/09/25 07:46
Plt Count 243 10^3/uL (130-400) 01/09/25 07:46
Sodium 138 mmol/L (135-145) 01/09/25 07:46
Potassium 4.0 mmol/L (3.5-5.1) 01/09/25 07:46
Chloride 100 mmol/L (98-107) 01/09/25 07:46
Carbon Dioxide 32 mmol/L (22-30) H 01/09/25 07:46
BUN 12 mg/dl (9-20) 01/09/25 07:46
Creatinine 1.0 mg/dL (0.7-1.3) 01/09/25 07:46
eGFR > 60.00 10/12/25 07:46
Glucose 122 mg/dl (70-99) H 01/09/25 07:46
Calcium 9.3 mg/dl (8.4-10.2) 01/09/25 07:46
Albumin 4.4 g/dl (3.5-5.0) 01/09/25 07:46
Physical Exam
-
Vital Signs:
Vital Signs
Temp Pulse Resp BP Pulse Ox
98.2 F 73 18 162/98 97
01/09/25 12:19 01/09/25 12:19 01/09/25 12:19 01/09/25 12:19 01/09/25 12:19
Cardiovascular:: Regular rate and rhythm
Respiratory:: Bilateral: Coarse
Lung Excursion:: Normal
Abdomen:: Nontender
Extremity Edema:: None: Bilateral:
[2025-01-09 14:20] LABS: TSH 3.09 uIU/ml (0.47-4.68)
--- NOTE | 2025-01-09 14:38 | PTCARENOTE ---
pt's eye were dilated by opthamologist.
[2025-01-09] MEDS: MOTRIN 600 MG PO (17:18)
[2025-01-09] MEDS: LOVENOX 40 MG SC (17:18)
[2025-01-09] MEDS: PRED FORTE 1% EYE DROPS 1 DROP OPHTH (21:01)
[2025-01-09] MEDS: REFRESH EYE DROPS (PF) 1 DROPS OPHTH ×2 (21:01→21:13)
[2025-01-09] MEDS: TOPAMAX 25 MG PO (21:01)
[2025-01-10] VITALS (8 sets, daily range): BP systolic 118–190; BP diastolic 64–102
[2025-01-10 04:28] LABS: Lyme Disease DNA by PCR Not Detected; Lyme Source Serum
[2025-01-10] MEDS: ZOVIRAX INJECTION 270 MG IV ×3 (05:22→23:01)
[2025-01-10 05:41] LABS: Hematocrit 44.3 % (39.0-52.0); Hemoglobin 15.1 g/dL (13.0-18.0); Mean Corp Hgb Conc. 34.1 g/dL (33.0-37.0); Mean Corpuscular Volume 83.0 fL (80.0-94.0); Platelet Count 201 10^3/uL (130-400); Red Cell Dist. Width 12.7 % (11.5-14.5)
[2025-01-10 06:03] LABS: ALT (SGPT) 20 U/L (0-50); AST (SGOT) 22 U/L (17-59); Albumin 4.1 g/dl (3.5-5.0); Alkaline Phosphatase 39 U/L (38-126); Blood Urea Nitrogen 15 mg/dl (9-20); Calcium 9.0 mg/dl (8.4-10.2); Carbon Dioxide 26 mmol/L (22-30); Chloride 105 mmol/L (98-107); Estimated Creatinine Clearance 107 ml/min; Glucose 111 mg/dl (70-99); Potassium 4.2 mmol/L (3.5-5.1); Sodium 137 mmol/L (135-145); Total Protein 6.8 g/dl (6.3-8.2); eGFR > 60.00
[2025-01-10] MEDS: TOPAMAX 25 MG PO ×2 (07:49→19:59)
[2025-01-10] MEDS: COZAAR 50 MG PO (07:49)
[2025-01-10] MEDS: REFRESH EYE DROPS (PF) 1 DROPS OPHTH ×3 (07:49→21:36)
[2025-01-10] MEDS: NORVASC 5 MG PO (07:49)
[2025-01-10] MEDS: PRED FORTE 1% EYE DROPS 1 DROP OPHTH ×3 (07:49→21:36)
--- NOTE | 2025-01-10 09:48 | W.PN.ID1 ---
Addendum entered and electronically signed by Yuli Redding MD 01/10/25 10:26:
Per Supervisor [employer], [facility] requires PICC (not midline) for IV acyclovir. First available nurse is tomorrow.
Order placed for converting midline to PICC. DC home tomorrow.
Original Note:
Date of Service
Date of Service: January 10, 2025
Today's Communication
- Can dc home when home IV set up.
Assessment / Plan
# VZV meningitis
# Right posterior C6 herpes zoster, resolved
# Acute R>L visual change resolved
- CSF 356 WBC, 92%L, 171 protein
Meningitis PCR panel: positive VZV
- No V1 lesions to explain direct ocular VZV.
Pt initially improving then developed R>L visual change, head pressure. Appreciate ophtho - pt with dry eyes.
Vision now improved with steroid gtt and lubricant gtt
- Continue Acyclovir 1000mg IV q8h x 14 days through 01/20/25
- Monitor renal function closely while on IV acyclovir.
Follow BMP, CBC qMon, Thurs.
- Home infusion sheet submitted to correctional counselor/case manager on 01/07/25.
- Can dc home when home IV set up.
-DC contact precaution.
Chief Complaint
-: Other (Aseptic meningitis)
Subjective / Review of Systems
Feels much improved. Visions improved with eyedrops.
Vital Signs / Physical Exam
Vital Signs
Vital Signs
Temp Pulse Resp BP Pulse Ox
98.2 F 76 16 144/95 98
01/10/25 07:10 01/10/25 07:10 01/10/25 07:10 01/10/25 07:10 01/10/25 07:10
Physical Exam
Constitutional: No Acute Distress
Head: Other (No frontal or maxillary sinus tenderness.)
Eyes: Negative No Conjunctival Hemorrhage, Sclera Anicteric, Erythema or Ocular Discharge
Cardiovascular: Regular Rate and S3/S4
Pulmonary: Clear
Gastrointestinal: Soft, Non Tender, Non Distended and Normal Bowel Sounds
Genito-Urinary: Negative CVA Tenderness
Extremities: Negative Edema
Skin: Rash (posterior neck lesions resolved)
Neurological: AO x 3; Negative Meningeal Signs
Objective Data
Lab Data
Lab Results
01/10/25 05:21
01/10/25 05:21
Estimated Creat Clear 107 ml/min 01/10/25 05:21
Total Bilirubin 1.2 mg/dl (0.2-1.3) 01/10/25 05:21
AST 22 U/L (17-59) 01/10/25 05:21
ALT 20 U/L (0-50) 01/10/25 05:21
Alkaline Phosphatase 39 U/L (38-126) 01/10/25 05:21
Most recent labs reviewed.
Micro Results:
01/06/25 11:59 CSF Culture - Preliminary
Csf No Growth After 4 Days
Gram Stain - Preliminary
01/06/25 13:58 Blood Culture - Preliminary
Blood/Venous No Growth in 72 hours- Final report to follow
01/06/25 13:55 Blood Culture - Preliminary
Blood/Venous No Growth in 72 hours- Final report to follow
01/06/25 11:58 Meningitis/Encephalitis Panel (PCR) - Final
Csf
Procedure Result Verified
Meningitis Panel, CSF by PCR Final 01/06/25-1346
Escherichia coli K1 Not Detected
Haemophilus influenzae Not Detected
Listeria monocytogenes Not Detected
Neisseria meningitidis Not Detected
Cytomegalovirus (CMV) Not Detected
Streptococcus agalactiae Not Detected
Streptococcus pneumoniae Not Detected
Enterovirus Not Detected
Herpes simplex virus 1 Not Detected
Herpes simplex virus 2 Not Detected
Human herpesvirus 6 Not Detected
Human parechovirus Not Detected
Varicella zoster virus DETECTED
C. neoformans/gattii Not Detected
01/02/[address] evidence for intracranial disease.
01/08/25 CTA head/neck: No significant vascular occlusion, aneurysm or dissection.
--- NOTE | 2025-01-10 10:18 | CM ---
manager cath lab reached out to [facility], and spoke with [facility] this morning and they state that patient needs a PICC line placed, director case management reached out to ID physician, and per [facility] they cannot accept patient today, will not have a nurse till
tomorrow.
Plan; Home with IV ABX, needs PICC line.
--- NOTE | 2025-01-10 14:14 | W.PN.HOSP.TC ---
Today's Communication/Plan
-
Plan discharge home in a.m. pending set up of home infusion and PICC line
Assessment / Plan
Assessment / Plan
44M w/history of hypertension, pre-DM, p/w persistent headache, neck stiffness, low-grade fever. Found to have viral meningitis secondary to VZV.
VZV meningitis
Right posterior C6 herpes zoster
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
-LP revealed VZV but ruled out bacterial cause of meningitis; CSF cell counts support viral meningitis
-Received antibiotics and steroids in the ER, no longer needed
-Acyclovir 1000mg IV q8h first day was 01/06/25 --ID plans 14 days through 01/20/25, patient needs PICC for home infusion, ordered per ID
-Monitor renal function closely as Acyclovir has potential to cause nephrotoxicity
-Follow appropriate precautions, per ID just needs contact precautions and lesions covered (has no lesions)
-No indication for systemic steroids right now, try steroid eye drops (see below)
#Hypertensive Urgency
Resolved, BP stable
-Continue home Losartan
-Amlodipine and prn BP meds added
#Visual Disturbances
#Secondary Headache, secondary to VZV Meningitis
-On 01/08/25, patient reported occasional visual issues; he had some trouble reading the menu and some spotting like you get if you look at the sun; his expressed concern that his right eye looks bloodshot
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
-Neuroimaging done 01/08/25 to 01/09/25 unremarkable
-Ophthalomologist Dr. Nilesh Izaguirre saw patient on 01/09/25 and advised that patient has dry eyes which could cause a lot of symptoms, eye pressure normal, could have mild iritis, and that patient should be seen in outpatient office by Dr. Izaguirre
or Dr. Maldonado closely after discharge (within 1 week after discharge)
-Per Dr. Izaguirre, his recommendation is for lubricating drops and prednisolone drops 3x/day -- ordered
-Greatly appreciate Dr. Izaguirre's assistance
-Consulted neurology -- they recommended Topamax 25 mg twice daily with titration as tolerated
#Hypernatremia -resolved
-In setting of very high blood pressure and unusual hypernatremia in a young patient with good PO intake, consulted nephrology
-Repeat labs showed normalization of sodium, probably lab error
#PreDM
-Was taking/supposed to be taking Metformin outpatient
#History of Severe Generalized Weakness in setting of COVID in 2021
DVT Prophylaxis: Lovenox
Code Status: Full Code
Anticipated Discharge: Within 24 hours
Subjective/Interval History
-
Date of Service: January 10, 2025
Patient states he feels well, denies any lesions, denies blurred vision, had a headache that resolved with Tylenol last night
Objective Data
-
Labs:
Laboratory Results
01/10/25
05:21
WBC 7.6
Hgb 15.1
Hct 44.3
Plt Count 201
Sodium 137
Potassium 4.2
Chloride 105
Carbon Dioxide 26
BUN 15
Creatinine 1.0
Glucose 111 H
Calcium 9.0
Total Bilirubin 1.2
AST 22
ALT 20
Alkaline Phosphatase 39
Vital Signs:
Vital Signs
Temp Pulse Resp BP Pulse Ox
98.5 F 88 16 143/91 99
01/10/25 11:23 01/10/25 11:23 01/10/25 11:23 01/10/25 11:23 01/10/25 11:23
I&O
01/09/25 01/10/25 01/11/25
06:59 06:59 06:59
Intake Total 1610 / 1610 1839
Balance 1610 / 1610 1839
Review of Systems
-
All other systems: Reviewed and negative
Physical Exam
-
General: No Apparent Distress
HEENT: Moist Mucous Membranes, Anicteric and PERRLA
Respiratory: Clear to Auscultation; Negative Wheezes, Rales or Rhonchi
Cardiac: Regular Rhythm and S1/S2; Negative Murmur, Rub or Gallop
GI: Soft, Nontender, Nondistended and Normal Bowel Sounds
Musculoskeletal: No Edema
Skin: Warm and Dry; Negative Rash, Ulcers or Lesions
Neuro: Awake and AO x 3
Hematologic / Lymphatic: No Lymphadenopathy
Psych: Calm
Data Reviewed
-
MRI: Report Reviewed by me
Labs: Labs Reviewed by me and Discussed with Patient
[2025-01-10 14:50] LABS: Lyme Antibody Screen, EIA Negative (Negative)
[2025-01-10] MEDS: LOVENOX 40 MG SC (17:07)
[2025-01-10] MEDS: APRESOLINE 10 MG IV (20:01)
[2025-01-10] MEDS: TYLENOL 650 MG PO (21:44)
[2025-01-11 03:52] VITALS: BP 130/77
[2025-01-11] MEDS: ZOVIRAX INJECTION 270 MG IV (05:22)
[2025-01-11 07:26] VITALS: BP 149/90
[2025-01-11] MEDS: NORVASC 5 MG PO (07:44)
[2025-01-11] MEDS: TOPAMAX 25 MG PO (07:44)
[2025-01-11] MEDS: COZAAR 50 MG PO (07:44)
[2025-01-11] MEDS: PRED FORTE 1% EYE DROPS 1 DROP OPHTH (07:45)
[2025-01-11] MEDS: REFRESH EYE DROPS (PF) 1 DROPS OPHTH (07:45)
--- NOTE | 2025-01-11 08:43 | CM ---
bankruptcy manager reached out to [facility] at [facility] this morning and faxed over PICC line information and chest x-ray, plan is to have [facility] out to patient's home today, for the 2pm dose, Patient is covered 100% for home IV ABX.
Plan; Home with [facility].
--- NOTE | 2025-01-11 09:23 | W.DCSUMMARY ---
Discharge Summary
Discharge Data
Date of Admission: 01/06/25
Date of Discharge: 01/12/25
Total time spent discharging patient (in min): 40
-
Pending Results: No
Hospital Course
Attending physician on day of discharge:
Iliana Kaur MD
Admission diagnosis:
Headache
Discharge diagnosis:
VZV meningitis
Secondary diagnoses:
Right posterior C6 herpes zoster
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
Hypertensive Urgency
Visual Disturbances
PreDM
Consultations:
ID
Nephrology
Ophthalmology
Procedures:
LP
PICC line
Hospital course:
44M w/history of hypertension, pre-DM, p/w persistent headache, neck stiffness, low-grade fever. Found to have viral meningitis secondary to VZV. Treated with IV acyclovir, PICC line placed for home infusion through 01/20/2025. Did not need
systemic steroids. Had headache treated with Topamax, seen by neurology. Had hypertensive urgency, treated with losartan, amlodipine. Had visual disturbance, felt to be dry eyes, also mild iritis, seen by ophthalmology, started on lubricating
drops and steroid eyedrops. Symptoms resolved prior to discharge.
Physical exam on discharge:
Gen: NAD
HEENT: PERRLA, EOMI, MMM, neck supple
Cards: RRR, no M/G/R
Resp: Lungs CTAB, no W/R/R
GI: soft, NT/ND/NABS
MSK: No edema
Skin: warm and dry, no rash, ulcer or lesions
Heme: No LAD
Psych: Calm
Neuro: AAOx3
Diagnostic findings:
Discharge disposition:
Home with C
Discharge Plan
-
Patient Disposition: Home with Home Care
Discharge Diagnosis/Procedures: Varciella Zoster Viral Meningitis, hypertension, visual disturbance, headache, prediabetes
Diet: Regular
Activity: No restrictions
Others Tests: You will follow up with Dr. Izaguirre in his office in [place] in a few days Address: [address] [place] [address] [place] [address]

Instructions: Viral meningitis in adults (DC)
Referrals:
Nilesh Izaguirre MD [Active, Ophthalmology]
Haley Foster CRNP [Family Provider]
Yuli Redding MD [Active, Infectious Diseases] - As needed
Additional Discharge Medication Instructions: You will take acyclovir until 01/20/25. You can follow up with infectious diseases, Dr. Redding. For your headache you can take the topamax as prescribed by the neurologist. For your dry eyes, take
lubricant eye drops and also for the eye pain you can use the steroid eye drops and follow up with Dr. Izaguirre this week. Your blood pressure was elevated and you can take losartan and amlodipine to control it, and follow up with your primary care
doctor to have the blood pressure rechecked and dose adjusted. You were also given a prescription for metformin for your borderline diabetes (your hemoglobin A1C is 6.5%).
Prescriptions:
New
Acyclovir [Zovirax Injection] 1000 MG
0.9% Sodium Chloride 250 ml [Nss] 250 ML
250 mls/hr IV Q8H
Ordered By: Iliana Kaur MD
Last Taken: 01/11/25 05:22 270 mls
losartan 50 mg Tablet
50 mg PO DAILY 30 Days Qty: 30 0RF
topiramate 25 mg Tablet
25 mg PO BID 30 Days Qty: 60 0RF
amlodipine 5 mg Tablet
5 mg PO DAILY 30 Days Qty: 30 0RF
prednisolone acetate 1 % Drops,Suspension
1 drp ophthalmic (eye) TID 30 Days Qty: 1 0RF
Refresh Classic (PF) 1.4-0.6 % Dropperette
1 drops ophthalmic (eye) TID Qty: 1 0RF
metformin 500 mg tablet
500 mg PO BID Qty: 60 0RF
Discontinued
losartan 50 mg Tablet
50 mg PO DAILY
Discharge Orders:
Discharge Patient (As Directed); Ordered 01/11/25
Ordered By: Iliana Kaur
Discharge Date and Time
Discharge Date/Time: 01/11/25 11:00
Print Language: BULGARIAN
--- NOTE | 2025-01-11 12:37 | W.PN.NEPH.PH ---
Today's Communication / Plan
-
Okay for discharge from renal
Assessment/Plan
-
Assessment
Herpes encephalitis
Hypertension
Prediabetes
Hyponatremia
Urinary urgency
Plan
IV acyclovir
follow BMP.
Blood pressure controlled
For discharge can follow-up with primary
-
-
Date of Service: January 11, 2025
CC / HPI / ROS
-
Chief Complaint:
HTN
History of Present Illness:
BP better but still high
Na normal
on acyclovir for VZV in spinal tap
Review of Systems:
no CP/SOB
some photophobia still
Labs
-
Labs:
WBC 7.6 10^3/uL (4.8-10.8) 01/10/25 05:21
RBC 5.34 10^6/uL (4.70-6.10) 01/10/25 05:21
Hgb 15.1 g/dL (13.0-18.0) 01/10/25 05:21
Hct 44.3 % (39.0-52.0) 01/10/25 05:21
Plt Count 201 10^3/uL (130-400) 01/10/25 05:21
Sodium 137 mmol/L (135-145) 01/10/25 05:21
Potassium 4.2 mmol/L (3.5-5.1) 01/10/25 05:21
Chloride 105 mmol/L (98-107) 01/10/25 05:21
Carbon Dioxide 26 mmol/L (22-30) 01/10/25 05:21
BUN 15 mg/dl (9-20) 01/10/25 05:21
Creatinine 1.0 mg/dL (0.7-1.3) 01/10/25 05:21
eGFR > 60.00 01/10/25 05:21
Glucose 111 mg/dl (70-99) H 01/10/25 05:21
Calcium 9.0 mg/dl (8.4-10.2) 01/10/25 05:21
Albumin 4.1 g/dl (3.5-5.0) 01/10/25 05:21
Physical Exam
-
Vital Signs:
Vital Signs
Temp Pulse Resp BP Pulse Ox
98.0 F 104 16 149/90 98
01/11/25 07:26 01/11/25 07:26 01/11/25 07:26 01/11/25 07:26 01/11/25 07:26
Cardiovascular:: Regular rate and rhythm
Respiratory:: Bilateral: Coarse
Lung Excursion:: Normal
Abdomen:: Nontender
Extremity Edema:: None: Bilateral:
== END 2025-01-11 11:00 | disposition home health service (06) | DRG 75 ==
LOC: 4 WEST ACU 15:39
PROVIDERS: ADMITTING PHYSICIAN Hospitalist; ATTENDING PHYSICIAN Internal Medicine; CONSULT PHYSICIAN Ophthalmology; CONSULT PHYSICIAN Psychiatry & Neurology Neurology; CONSULT PHYSICIAN Specialist; EMERGENCY PHYSICIAN Emergency Medicine; FAMILY PHYSICIAN Nurse Practitioner Primary Care; OTHER PHYSICIAN Internal Medicine Infectious Disease
PROC: 02HV33Z Insertion of Infusion Device into Superior Vena Cava, Percutaneous Approach (ICD-10-PCS; 2025-01-10)
DX: B02.1 Zoster meningitis (principal); B00.4 Herpesviral encephalitis; G82.50 Quadriplegia, unspecified; E87.1 Hypo-osmolality and hyponatremia; E87.0 Hyperosmolality and hypernatremia; B02.0 Zoster encephalitis; G03.9 Meningitis, unspecified; I10 Essential (primary) hypertension; I16.0 Hypertensive urgency; I77.6 Arteritis, unspecified; Z79.899 Other long term (current) drug therapy; Z86.16 Personal history of COVID-19; B02.29 Other postherpetic nervous system involvement; E11.9 Type 2 diabetes mellitus without complications
CPT/HCPCS: 62270; 70496; 70498; 70553; 71045; 80048; 80053; 81003; 81015; 82570; 82945; 83735; 83935; 84157; 84300; 84439; 84443; 85027; 86618; 87015; 87040; 87070; 87205; 87476; 87483; 89051; 93005; 96361; 96365; 96366; 96375; 96376; 99291; A9575; Q9967

== ENCOUNTER 2025-03-30 06:23 | Day surgery (SDC) | payer BC, SELFPAY ==
[2025-03-30 12:16] LABS: Glucose - Point of Care 86 mg/dl (70-99)
== END 2025-03-30 14:51 | disposition home or self-care (01) ==
LOC: GI 06:23
PROVIDERS: ATTENDING PHYSICIAN Internal Medicine Gastroenterology
DX: Z12.11 Encounter for screening for malignant neoplasm of colon (principal); K57.30 Diverticulosis of large intestine without perforation or abscess without bleeding; K64.8 Other hemorrhoids; D12.2 Benign neoplasm of ascending colon; K63.5 Polyp of colon
CPT/HCPCS: 45385; 45380; 82962; 88305